=== PATIENT | female | born 1990 | race Caucasian/White ===

== ENCOUNTER 2017-07-15 12:07 | Inpatient (IN) | payer OTHER ==
[2017-07-15 18:45] VITALS: BMI 30.5
[2017-07-15] MEDS ORDERED: Ondansetron HCl/PF 4 MG/2 ML Vial IVP PRN (18:45)
[2017-07-15] MEDS ORDERED: Docusate 100 MG CAP PO PRN (18:45)
[2017-07-15] MEDS ORDERED: Acetaminophen 500 MG TAB PO PRN (18:45)
[2017-07-15] MEDS ORDERED: Promethazine HCl 25 MG/ML VIAL IM PRN (18:45)
[2017-07-15] MEDS ORDERED: Misoprostol 200 MCG TAB PR PRN (18:45)
[2017-07-15] MEDS ORDERED: LR / Pitocin 40 units/1000 ml 1,000 ML IV PRN (18:45)
[2017-07-15] MEDS ORDERED: HYDROcodone/Acetaminophen 5/325 mg Tablet PO PRN ×2 (18:45)
[2017-07-15] MEDS ORDERED: Ibuprofen 800 MG TAB PO PRN (18:45)
[2017-07-15] MEDS ORDERED: Diphenoxylate HCl/Atropine Tablet PO PRN ×2 (18:45)
[2017-07-15] MEDS ORDERED: Zolpidem Tartrate 5 MG TAB PO PRN (18:45)
[2017-07-15] MEDS ORDERED: Lidocaine 1% (PF) 30 ML VIAL SC PRN (18:45)
[2017-07-15] MEDS: Lactated Ringer's 1,000 ML IV SCH (19:00)
[2017-07-15 19:13] LABS: Mean Corpuscular HGB CONC 34.3 g/dL (32.0-36.0); Mean Corpuscular Hemoglobin 30.3 pg (27.0-31.0); Mean Corpuscular Volume 88.3 fl (81.0-99.0); Mean Platelet Volume 8.5 fL (7.4-10.4); Platelet Count 214 thou/uL (130-400); RBC Distribution Width 12.6 % (11.5-14.5); Red Blood Cell (RBC) Count 3.97 mill/uL (4.20-5.40)
[2017-07-15 20:03] LABS: Syphilis Antibody Nonreactive (Nonreactive); Syphilis Antibody Index 0.03 S/CO (<1.00 Non-Reactive)
[2017-07-15 20:04] LABS: HBSAg Index 0.16 S/CO (0-0.99); Hep B Surf Ag Non-Reactive S/CO (NonReactive)
[2017-07-15] MEDS: Misoprostol 100 MCG TAB VAG SCH (22:28)
[2017-07-16] MEDS: Lactated Ringer's 1,000 ML IV SCH ×4 (02:30→22:35)
[2017-07-16] MEDS: Misoprostol 100 MCG TAB VAG SCH ×3 (04:44→12:32)
[2017-07-16] MEDS: LR 500 ML/Oxytocin 10 units 500 ML IV SCH ×2 (07:30→22:00)
[2017-07-16] MEDS ORDERED: Bupivacaine 0.75% W/DEXTROSE 8.25% 2 ML AMP ONE (10:02)
[2017-07-16] MEDS ORDERED: DISCONTINUE ALL PREVIOUS NARCOTICS FS SCH (10:15)
[2017-07-16] MEDS ORDERED: Bupivacaine 0.5% 20 ML, fentaNYL Citrate/PF 400 MCG in Sodium Chloride 0.9% 72 ML EPIDURAL SCH (10:15)
[2017-07-16] MEDS ORDERED: Fentanyl 100 MCG/2 ML VIAL ONE (10:36)
[2017-07-16] MEDS ORDERED: Bupivacaine 0.5% 10 ML VIAL ONE (10:36)
[2017-07-16] MEDS ORDERED: diphenhydrAMINE 50 MG/ML VIAL IVP PRN (11:03)
[2017-07-16] MEDS ORDERED: ePHEDrine/0.9% NaCl/PF SYRINGE 50 mg/10 ml SLOW IVP PRN (11:03)
[2017-07-16] MEDS ORDERED: Promethazine HCl 25 MG/ML VIAL IM PRN (11:03)
[2017-07-16] MEDS ORDERED: Lactated Ringer's 500 ML IV PRN (11:03)
[2017-07-16] MEDS ORDERED: Hydrocerin (Eucerin) Cream 120 gm Jar TOP PRN (11:03)
[2017-07-16] MEDS ORDERED: Naloxone HCl 0.4 mg/ml Vial IVP PRN ×2 (11:03)
[2017-07-16] MEDS ORDERED: Ondansetron HCl/PF 4 MG/2 ML Vial IVP PRN ×2 (11:03→22:32)
[2017-07-16] MEDS ORDERED: Acetaminophen 325 MG TAB PO PRN (11:03)
[2017-07-16] MEDS ORDERED: Communication Order-Pharmacy FS SCH (11:15)
[2017-07-16] MEDS ORDERED: Fentanyl 4mcg/Marcaine 0.1% Cassette 100 ML EPIDURAL SCH (11:15)
[2017-07-16] MEDS ORDERED: Bupivacaine 0.25% 10 ML VIAL EPIDURAL SCH (11:45)
[2017-07-16] MEDS ORDERED: Fentanyl 100 MCG/2 ML VIAL I-THECAL SCH (11:45)
[2017-07-16] MEDS ORDERED: LR / Pitocin 40 units/1000 ml 1,000 ML ONE (20:26)
[2017-07-16] MEDS ORDERED: Lidocaine 1% (PF) 30 ML VIAL ONE (20:26)
[2017-07-16] MEDS ORDERED: Bisacodyl 10 MG SUPP PR PRN (22:32)
[2017-07-16] MEDS ORDERED: diphenhydrAMINE 25 MG CAP PO PRN (22:32)
[2017-07-16] MEDS ORDERED: Preparation H Ointment 28 GM TUBE PR PRN (22:32)
[2017-07-16] MEDS ORDERED: Acetaminophen/Codeine 30-300mg Tablet PO PRN ×2 (22:32)
[2017-07-16] MEDS ORDERED: Zolpidem Tartrate 5 MG TAB PO PRN (22:32)
[2017-07-16] MEDS ORDERED: Benzocaine/Menthol 20-0.5% 60 ML CAN TOP PRN (22:32)
[2017-07-16] MEDS ORDERED: Lanolin Ointment 7 GM TUBE TOP PRN (22:32)
[2017-07-16] MEDS ORDERED: Milk Of Magnesia 30 ML UDCUP PO PRN (22:32)
[2017-07-16] MEDS ORDERED: LR / Pitocin 40 units/1000 ml 1,000 ML IV SCH (22:45)
[2017-07-17] MEDS: Ibuprofen 800 MG TAB PO SCH ×3 (04:59→21:18)
[2017-07-17 05:37] LABS: Hemoglobin 9.5 g/dL (12.0-16.0); Mean Corpuscular HGB CONC 33.9 g/dL (32.0-36.0); Mean Corpuscular Hemoglobin 30.4 pg (27.0-31.0); Mean Corpuscular Volume 89.6 fl (81.0-99.0); Mean Platelet Volume 8.2 fL (7.4-10.4); Platelet Count 167 thou/uL (130-400); RBC Distribution Width 12.7 % (11.5-14.5); Red Blood Cell (RBC) Count 3.14 mill/uL (4.20-5.40)
[2017-07-17] MEDS: Prenatal Vitamin 1 TAB PO SCH (08:30)
[2017-07-17] MEDS: Ferrous Sulfate 325 MG TAB PO SCH ×2 (08:30→16:07)
[2017-07-17] MEDS: Docusate Calcium (SURFAK) 240 MG CAP PO SCH ×2 (08:30→21:18)
[2017-07-17] MEDS: Misoprostol 100 MCG TAB VAG SCH ×2 (08:39→08:40)
[2017-07-17] MEDS ORDERED: Adacel (T-DAP) 0.5 ML VIAL IM ONE (09:00)
[2017-07-18] MEDS: Ibuprofen 800 MG TAB PO SCH (05:50)
[2017-07-18] MEDS: Docusate Calcium (SURFAK) 240 MG CAP PO SCH (09:19)
[2017-07-18] MEDS: Ferrous Sulfate 325 MG TAB PO SCH (09:19)
[2017-07-18] MEDS: Prenatal Vitamin 1 TAB PO SCH (09:19)
[2017-07-18 09:38] VITALS: BP 128/84; TEMP 97.8
== END 2017-07-18 13:40 | disposition home or self-care (01) | DRG 775 ==
LOC: L&D 17:55 → 3SW 07-17 01:23
PROVIDERS: ADMIT Obstetrics & Gynecology; ATTEND Obstetrics & Gynecology
PROC: 10D07Z6 Extraction of Products of Conception, Vacuum, Via Natural or Artificial Opening (ICD-10-PCS; principal; 2017-07-16)
PROC: 0KQM0ZZ Repair Perineum Muscle, Open Approach (ICD-10-PCS; 2017-07-16)
PROC: 3E0P7VZ Introduction of Hormone into Female Reproductive, Via Natural or Artificial Opening (ICD-10-PCS; 2017-07-16)
PROC: 10907ZC Drainage of Amniotic Fluid, Therapeutic from Products of Conception, Via Natural or Artificial Opening (ICD-10-PCS; 2017-07-16)
DX: O70.1 Second degree perineal laceration during delivery (principal); Z37.0 Single live birth; Z3A.39 39 weeks gestation of pregnancy
CPT/HCPCS: 36415; 51702; 85027; 86780; 87340; J0595; J2001; J2405; J3010; J3490; J7050; J7120; S0020